=== PATIENT | female | born 1960 | race Caucasian/White ===

== ENCOUNTER → 2017-03-05 | Outpatient (CLI) | payer MEDICARE, MEDICAID ==
[~2017-03-05] MED LIST: 3N1 COMMODE MC; ALBU18HF INHALATION; ASPI325T32 PO; BUDE6HFA INHALATION; BUSP10TA2 PO; CHOL100062 PO; DIAZ-90 PO; DIVA500T15 PO; DOCU-144 PO; FLUT16SP24 NS; FURO40TA4 PO; GEMF600T PO; LEVO175T2 PO; LISI10TA2 PO; LORA10CA PO; MONT10TA21 PO; MULT-552 PO; OXYC-481 PO; POTA20TA78 PO; RANI300T PO; RES15 PO; RISP2TAB93 PO; TIOT18CA INHALATION; TRAM-40 PO; VENL75CA89 PO; WALK1EAC23 MC
--- NOTE | 2017-03-05 14:38 | RADRPT ---
PROCEDURE: XR Hip. CLINICAL INDICATION: PAIN TECHNIQUE: AP and frog lateral views of the left hip were performed. COMPARISON: None. FINDINGS: The patient is status post bilateral hip arthroplasties. Hardware appears intact in appropriate pos ition. The soft tissues are unremarkable. The sacroiliac joints and symphysis pubis appear within no rmal limits. IMPRESSION: Status post bilateral hip arthroplasties. Intact hardware and near anatomic alignment. RPTAT: HBST .Juvenal Kelley MD, MD Date Time Electronically viewed and signed by .Juvenal Kelley MD, on 03/05/2017 14:38 .T/
--- NOTE | 2017-03-05 14:54 | RADRPT ---
PROCEDURE: Bilateral knee x-ray CLINICAL INDICATION: Pain. TECHNIQUE: Single AP weightbearing view of the knees obtained. Lateral and sunrise views of both k nees were also performed. COMPARISON: No. FINDINGS: There is a small spur off the right lateral tibial condyle. Right knee is otherwise normal. No eff usion is noted. The soft tissues and bony elements of the left knee are normal. No left knee effus ion is noted. IMPRESSION: 1. Osteoarthritis of the right knee with a tiny spur noted off of the right lateral tibial condyle. 2. Normal left knee. Physician Jenna Date Time Electronically viewed and signed by Noel Jimenez Physician on 03/05/2017 14:53 /
== END | disposition home or self-care (01) ==
LOC: HKI 15:24
PROVIDERS: ATTEND Orthopaedic Surgery
DX: M25.561 Pain in right knee (principal); M25.562 Pain in left knee; M22.42 Chondromalacia patellae, left knee; M22.41 Chondromalacia patellae, right knee; Z96.643 Presence of artificial hip joint, bilateral
CPT/HCPCS: 73502; 73564; G0463

== ENCOUNTER 2018-02-18 22:12 | Emergency (ER) | END 2018-02-18 23:11 | disposition home or self-care (01) ==